=== PATIENT | female | born 1965 | race Caucasian/White ===

== ENCOUNTER 2019-12-25 23:40 | Inpatient (IN) | payer MEDICAID ==
[~2019-12-25] VITALS: Ht 160 cm; Wt 71.2 kg
[2019-12-26] MEDS ORDERED: CLINDAMYCIN PMX 600MG/50ML 50 ML IV ONE (00:30)
[2019-12-26] MEDS ORDERED: SODIUM CHLORIDE 0.9% 1,000ML IVBOLUS ONE ×2 (00:30→02:00)
[2019-12-26 00:38] LABS: MEAN CORPUSCULAR HEMOGLOBIN 24.8 pg (27.0-34.8); MEAN CORPUSCULAR HGB CONC 31.5 g/dL (32.4-35.8); MEAN PLATELET VOLUME 7.1 fL (7.4-10.4); PLATELET COUNT 528 x10^3/uL (130-400); RED BLOOD COUNT 3.88 x10^6/uL (3.82-5.3); RED CELL DISTRIBUTION WIDTH 15.9 % (9.6-15.2)
[2019-12-26] MEDS ORDERED: CLINDAMYCIN PMX 600MG/50ML 50 ML ONE ×2 (00:51→09:51)
[2019-12-26 01:00] LABS: MD YES
[2019-12-26 01:02] LABS: ALANINE AMINOTRANSFERASE 21 U/L (12-78); ALBUMIN 2.4 g/dL (3.4-5.0); CREATININE 1.01 mg/dL (0.55-1.02)
[2019-12-26 01:03] LABS: BAND#(MANUAL) 3.62 x10^3/uL; BANDS%(MANUAL) 11 % (0-7); LYMPH#(MANUAL) 0.99 x10^3/uL (1-3.4); LYMPHS% (MANUAL) 3 % (22-44); SEG#(MANUAL) 28.29 x10^3/uL (1.8-6.8); SEGS% (MANUAL) 86 % (42-75)
[2019-12-26 01:04] LABS: <PLATELET ESTIMATE> INCREASED; ALKALINE PHOSPHATASE 117 U/L (45-117); ANISOCYTOSIS 1+; BILIRUBIN,TOTAL 0.6 mg/dL (0.2-1.0); HYPOCHROMIA 1+; MICROCYTOSIS 1+; SMALL PLATELETS 1+; TOTAL PROTEIN 8.5 g/dL (6.4-8.2)
[2019-12-26 01:09] LABS: ANION GAP 6 mmol/L (5-15); CHLORIDE 105 mmol/L (98-107)
--- NOTE | 2019-12-26 01:55 | NUR ---
BIBA. C/o worsening cellulitis to BLLE, worse on R side. (+) CSM. (+) DP pulses noted bilaterally. Significant cellulitis, redness, swelling, and various stages of healing scabs noted. Denies fever/chills. Denies N/V/D. Denies chest pain/SOB. Pt states hx of IV drug use. Placed on continuous tele/O2 monitoring
[2019-12-26] MEDS ORDERED: CEFTRIAXONE PMX 1GM/50ML 50 ML IV ONE (02:00)
--- NOTE | 2019-12-26 02:00 | NUR ---
Delay in meds d/t inability to gain IV access by this RN and multiple additional RNs with US guidance. aware
[2019-12-26] MEDS ORDERED: SODIUM CHLORIDE 0.9% 1,000 ML IV SCH ×2 (02:30→12:30)
[2019-12-26] MEDS ORDERED: LABETALOL 5MG/ML, 20ML IVPush PRN (02:30)
[2019-12-26] MEDS ORDERED: ONDANSETRON 2MG/ML, 2ML IVPush PRN (02:30)
[2019-12-26] MEDS ORDERED: SODIUM CHLORIDE 0.9% 1,000 ML IV ONE (02:30)
[2019-12-26] MEDS ORDERED: CEFTRIAXONE PMX 1GM/50ML 50 ML ONE (02:39)
[2019-12-26 02:41] LABS: % IRON SATURATION 5 % (20-55); IRON LEVEL 13 mcg/dL (50-170); TOTAL IRON BINDING CAPACITY 250 mcg/dL (250-450)
[2019-12-26] MEDS ORDERED: HEPARIN 5,000 UNITS/ML, 1ML ONE ×2 (02:41→12:25)
[2019-12-26] MEDS: HEPARIN 5,000 UNITS/ML, 1ML SQ SCH ×3 (02:53→18:19)
--- NOTE | 2019-12-26 02:53 | NUR ---
BREAK RN: 2ND LITER OF FLUIDS AND ROCEPHIN STARTED. ALL VITALS STABLE. PT DENIES ANY COMPLAINTS AT THIS TIME
[2019-12-26] MEDS ORDERED: HYDROcodone/APAP 5/325 TABLET ONE (04:36)
[2019-12-26] MEDS ORDERED: ONDANSETRON 2MG/ML, 2ML ONE (04:37)
[2019-12-26] MEDS: HYDROcodone/APAP 5/325 TABLET PO PRN ×3 (04:40→20:09)
--- NOTE | 2019-12-26 05:50 | NUR ---
Pt refusing central line. States she wants to wait for PICC line placement. Aware we are unable to say when PICC line will be placed and IV access is critically important. Pt a&o x4, continues to refuse. aware
--- NOTE | 2019-12-26 05:54 | NUR ---
MD at bedside discussing PICC vs central line access
--- NOTE | 2019-12-26 06:53 | NUR ---
Unable to administer 0630 abx and IVF d/t no IV access. aware
--- NOTE | 2019-12-26 07:10 | NUR ---
REPORT RECEIVED FROM TRAE ORTEGA. THIS IS A 54 YO F BEING ADMITTED FOR BILAT LWR LEG CELLULITIS. D/T PTS SCAR TISSUE R/T HX OF IV DRUG USE, PIV ACCESS IS CURRENTLY UNAVAILABLE AFTER SEVERAL ATTEMPTS BY POSTDOCTORAL RESEARCH ASSOCIATE. PER TRAE ORTEGA, PT WAS TO GET A CENTRAL LINE FROM ED MD AFTER BECOMING HYPOTENSIVE, HOWEVER PT REFUSED AND PRESSURES STABILIZED. PER TRAE ORTEGA PT IS TO GET PICC LINE TODAY. PER TRAE ORTEGA PT RECEIVED 2L NS AND ABX W/ PREVIOUS LINE THAT IS NO LONGER PATENT, PER SEPSIS PROTOCOL. PT RESTING ON Floor64 W/ CALL LIGHT IN REACH AND SIDE RAILS UPX2. RESP EVEN AND UNLABORED, JOSE LUIS.
--- NOTE | 2019-12-26 07:38 | NUR ---
TELEPHONE CALL TO PANKAJ SIU REGARDING LACK OF IV ACCESS. STATES HE WILL PUT IN ORDER FOR STAT PICC LINE.
--- NOTE | 2019-12-26 08:18 | NUR ---
BREAKFAST TRAY DELIVERED.
--- NOTE | 2019-12-26 08:26 | NUR ---
PT AMBULATED TO THE BR W/ A STEADY GAIT.
--- NOTE | 2019-12-26 08:37 | NUR ---
PT RETURNED TO ROOM W/O INCIDENT. RESP EVEN AND UNLABORED, NADN. PT DENIES ANY HOME MEDS OR PAST MEDICAL HX.
[2019-12-26] MEDS: NICOTINE 14MG/24 HR PATCH.TD24 TD SCH (09:00)
--- NOTE | 2019-12-26 09:09 | NUR ---
IR IN ROOM TO TAKE PT FOR PICC LINE AT THIS TIME.
--- NOTE | 2019-12-26 09:10 | NUR ---
REPORT GIVEN TO ELIZABETH ORTEGA. CARLOS, JOSE LUIS.
--- NOTE | 2019-12-26 09:11 | NUR ---
report received from JORDAN Leary, pt in IR at this time. this RN assuming care of pt upon return.
[2019-12-26] MEDS: CLINDAMYCIN PMX 600MG/50ML 50 ML IV SCH ×2 (09:54→18:40)
--- NOTE | 2019-12-26 10:20 | NUR ---
pt back from IR, PICC line placed with rad confirmation of placement. picc flushes well with good blood return. cleocin infusing via IV pump. pt [facility] hospital bed. pt states she has pain to right lower leg, pt drowsy and requests lights dimmed to sleep, stating she did not sleep last night. pt declining nicotine patch, pt to be medicated for pain once awake and alert. sinus tach rate 90s with no ectopy. call light in reach, all monitors in place. awaiting Elasticsearch placement at this time.
[2019-12-26] MEDS: LACTOBACILLUS CHEW TABLET PO SCH ×3 (11:07→20:03)
--- NOTE | 2019-12-26 11:10 | NUR ---
PT HYPOTENSIVE AT 88/56, MAP 67. PT DROWSY, AWAKENS TO VOICE. A&O WHEN AWAKENED, RESPS EVEN AND UNLABORED. NSR RATE 80-90 ON TELETYPEWRITER INSTALLER WITH NO ECTOPY. HOSPITALIST BRAYAN CALLED TO NOTIFY OF HYPOTENSION. SALBADOR SCHMIDT NOTIFIED THAT PT DID NOT RECEIVE FULL WEIGHT BASED NS BOLUS. TELEPHONE ORDER RECEIVED FOR 500ML NS BOLUS FOLLOWED BY NS MAINTENANCE INFUSION OF 100ML/HR.
[2019-12-26] MEDS ORDERED: SODIUM CHLORIDE 0.9%, 500ML IVBOLUS ONE (12:30)
--- NOTE | 2019-12-26 13:00 | NUR ---
NS BOLUS INFUSING, PT IS AWAKE, ALERT, ORIENTED X 4. PT EATING LUNCH AT THIS TIME. PT STATES PAIN TOLERABLE AT 4/10, DECLINES PAIN MEDICATION. WOUND CARE PERFORMED, DRESSINGS PLACED TO LESIONS X 2 TO RIGHT LOWER LEG. WOUND CULTURE COLLECTED AND WALKED TO LAB. PT REMAINS ON ALL MONITORS, NADN.
--- NOTE | 2019-12-26 14:01 | NUR ---
NS BOLUS COMPLETED AT 1324, SERIAL BP MEASUREMENTS IN PROGRESS PER PROTOCOL. PT IS A&O, RESPS EVEN AND UNLABORED, NADN. PT ATE WHOLE LUNCH TRAY, TOLERATED WELL. ROOM ASSIGNMENT RECEIVED. RECEIVING RN CALLED FOR REPORT, UNABLE TO TAKE REPORT AT THIS TIME.
--- NOTE | 2019-12-26 14:36 | NUR ---
THIS RN TRANSPORTED PATIENT WITH TECH ASSIST. THIS RN SPOKE WITH SALBADOR SCHMIDT AND NOTIFIED THAT PT HAS CRACKLES AUSCULTATED TO LUNG BASES PRIOR TO NS BOLUS GIVEN TODAY, PA NOTIFIED PT WAS MILDLY HYPOXIC THIS AM ON ROOM AIR 88-89%. PA ORDERED XRAY. PA ALSO NOTIFIED VENOFER IS ORDERED TO BEGIN TOMORROW, PA STATED THAT THIS MAY BE STARTED TODAY, PHARMACY CALLED TO NOTIFY. RECEIVING RN AWARE.
[2019-12-26 14:44] VITALS: BP 92/63
[2019-12-26] MEDS: IRON SUCROSE COMPLEX 100MG/5ML IV SCH (18:18)
[2019-12-26] MEDS: SODIUM CHLORIDE 0.9% 1,000 ML IV SCH (18:20)
[2019-12-26 20:09] VITALS: BP 106/65
[2019-12-27] MEDS: CLINDAMYCIN PMX 600MG/50ML 50 ML IV SCH ×4 (00:55→18:26)
[2019-12-27 01:28] VITALS: BP 100/65
[2019-12-27] MEDS: HEPARIN 5,000 UNITS/ML, 1ML SQ SCH ×3 (02:36→18:26)
[2019-12-27] MEDS: CEFTRIAXONE PMX 1GM/50ML 50 ML IV SCH (02:37)
[2019-12-27 05:34] LABS: BASOPHILS % (AUTO) 0 % (0-1); EOSINOPHILS % (AUTO) 3 % (1-7); LYMPHOCYTES % (AUTO) 8 % (22-44); MEAN CORPUSCULAR HEMOGLOBIN 25.7 pg (27.0-34.8); MEAN CORPUSCULAR HGB CONC 32.4 g/dL (32.4-35.8); MEAN PLATELET VOLUME 7.4 fL (7.4-10.4); MONOCYTES % (AUTO) 5 % (2-9); NEUTROPHILS % (AUTO) 84 % (42-75); PLATELET COUNT 425 x10^3/uL (130-400); RED BLOOD COUNT 3.28 x10^6/uL (3.82-5.3); RED CELL DISTRIBUTION WIDTH 16.1 % (9.6-15.2)
[2019-12-27 05:39] LABS: ANION GAP 5 mmol/L (5-15); CALCIUM 7.7 mg/dL (8.5-10.1); CHLORIDE 109 mmol/L (98-107); CREATININE 0.69 mg/dL (0.55-1.02)
[2019-12-27 05:46] LABS: MD NO
[2019-12-27] MEDS: SODIUM CHLORIDE 0.9% 1,000 ML IV SCH ×2 (06:00→20:27)
[2019-12-27 07:10] VITALS: BP 102/70
[2019-12-27] MEDS: LACTOBACILLUS CHEW TABLET PO SCH ×3 (08:40→20:26)
[2019-12-27] MEDS: NICOTINE 14MG/24 HR PATCH.TD24 TD SCH (08:40)
[2019-12-27] MEDS ORDERED: IRON SUCROSE COMPLEX 100MG/5ML IV SCH (09:00)
[2019-12-27] MEDS: HYDROcodone/APAP 5/325 TABLET PO PRN ×2 (11:48→17:38)
[2019-12-27 12:02] VITALS: BP 100/68
[2019-12-27] MEDS: IRON SUCROSE COMPLEX 100MG/5ML IV SCH (15:40)
[2019-12-27 19:53] VITALS: BP 106/75
[2019-12-27] MEDS: MUPIROCIN OINT 2%, 1 GM APPL. TP SCH (20:27)
[2019-12-28] MEDS: CLINDAMYCIN PMX 600MG/50ML 50 ML IV SCH ×4 (00:28→20:35)
[2019-12-28 01:22] VITALS: BP 101/67
[2019-12-28] MEDS: HEPARIN 5,000 UNITS/ML, 1ML SQ SCH ×3 (02:43→18:30)
[2019-12-28] MEDS: CEFTRIAXONE PMX 1GM/50ML 50 ML IV SCH (02:43)
[2019-12-28] MEDS: HYDROcodone/APAP 5/325 TABLET PO PRN ×3 (02:44→20:13)
[2019-12-28 07:28] VITALS: BP 112/75
[2019-12-28 08:13] LABS: ANION GAP 4 mmol/L (5-15); CALCIUM 8.3 mg/dL (8.5-10.1); CHLORIDE 108 mmol/L (98-107); CREATININE 0.75 mg/dL (0.55-1.02)
[2019-12-28 08:15] LABS: BASOPHILS % (AUTO) 1 % (0-1); EOSINOPHILS % (AUTO) 4 % (1-7); LYMPHOCYTES % (AUTO) 14 % (22-44); MEAN CORPUSCULAR HEMOGLOBIN 25.3 pg (27.0-34.8); MEAN PLATELET VOLUME 7.3 fL (7.4-10.4); MONOCYTES % (AUTO) 8 % (2-9); NEUTROPHILS % (AUTO) 73 % (42-75); PLATELET COUNT 475 x10^3/uL (130-400); RED BLOOD COUNT 3.39 x10^6/uL (3.82-5.3); RED CELL DISTRIBUTION WIDTH 15.9 % (9.6-15.2)
[2019-12-28 08:18] LABS: MD NO
[2019-12-28] MEDS: NICOTINE 14MG/24 HR PATCH.TD24 TD SCH (08:46)
[2019-12-28] MEDS: LACTOBACILLUS CHEW TABLET PO SCH ×3 (08:46→20:13)
[2019-12-28] MEDS: SODIUM CHLORIDE 0.9% 1,000 ML IV SCH ×2 (08:47→20:35)
[2019-12-28] MEDS: MUPIROCIN OINT 2%, 1 GM APPL. TP SCH (08:48)
[2019-12-28 14:30] VITALS: BP 131/82
[2019-12-28] MEDS: IRON SUCROSE COMPLEX 100MG/5ML IV SCH (16:47)
[2019-12-28] MEDS ORDERED: POLYETHYLENE GLYCOL 17 GM PACKET PO PRN (18:00)
[2019-12-28] MEDS ORDERED: DOCUSATE 100 MG CAPSULE PO PRN (18:00)
[2019-12-28 19:12] VITALS: BP 115/76
[2019-12-28 23:59] VITALS: BP 117/74
[2019-12-29 00:28] VITALS: BP 117/74
[2019-12-29] MEDS: CLINDAMYCIN PMX 600MG/50ML 50 ML IV SCH ×2 (02:50→10:31)
[2019-12-29] MEDS: CEFTRIAXONE PMX 1GM/50ML 50 ML IV SCH (02:50)
[2019-12-29] MEDS: HYDROcodone/APAP 5/325 TABLET PO PRN ×2 (03:10→10:30)
[2019-12-29] MEDS: HEPARIN 5,000 UNITS/ML, 1ML SQ SCH ×2 (03:10→10:31)
[2019-12-29] MEDS: MUPIROCIN OINT 2%, 1 GM APPL. TP SCH ×2 (06:28→10:33)
[2019-12-29 07:15] LABS: BASOPHILS % (AUTO) 1 % (0-1); EOSINOPHILS % (AUTO) 4 % (1-7); LYMPHOCYTES % (AUTO) 17 % (22-44); MEAN CORPUSCULAR HEMOGLOBIN 25.4 pg (27.0-34.8); MEAN CORPUSCULAR HGB CONC 31.9 g/dL (32.4-35.8); MEAN PLATELET VOLUME 7.4 fL (7.4-10.4); MONOCYTES % (AUTO) 7 % (2-9); NEUTROPHILS % (AUTO) 71 % (42-75); PLATELET COUNT 474 x10^3/uL (130-400); RED BLOOD COUNT 3.39 x10^6/uL (3.82-5.3); RED CELL DISTRIBUTION WIDTH 15.8 % (9.6-15.2)
[2019-12-29 07:25] LABS: MD NO
[2019-12-29 07:26] LABS: ANION GAP 5 mmol/L (5-15); CALCIUM 8.6 mg/dL (8.5-10.1); CHLORIDE 106 mmol/L (98-107); CREATININE 0.73 mg/dL (0.55-1.02)
[2019-12-29 07:53] VITALS: BP 132/75
[2019-12-29] MEDS ORDERED: SENNA/DOCUSATE TABLET PO SCH (09:00)
[2019-12-29] MEDS: LACTOBACILLUS CHEW TABLET PO SCH (10:30)
[2019-12-29] MEDS: NICOTINE 14MG/24 HR PATCH.TD24 TD SCH (10:31)
[2019-12-29] MEDS: SODIUM CHLORIDE 0.9% 1,000 ML IV SCH (10:32)
[2019-12-29] MEDS ORDERED: LORazepam 2 MG/ML, 1ML IVPush PRN (11:30)
== END 2019-12-29 11:36 | disposition left against medical advice (07) | DRG 872 ==
LOC: ED 12-26 01:46 → EDIP 12-26 02:10 → 4WST 12-26 14:40
PROVIDERS: ADMIT Family Medicine; ATTEND Internal Medicine
PROC: 02HV33Z Insertion of Infusion Device into Superior Vena Cava, Percutaneous Approach (ICD-10-PCS; principal; 2019-12-26)
PROC: B5181ZA Fluoroscopy of Superior Vena Cava using Low Osmolar Contrast, Guidance (ICD-10-PCS; 2019-12-26)
PROC: B548ZZA Ultrasonography of Superior Vena Cava, Guidance (ICD-10-PCS; 2019-12-26)
DX: A41.9 Sepsis, unspecified organism (principal); L03.115 Cellulitis of right lower limb; F17.200 Nicotine dependence, unspecified, uncomplicated; F41.9 Anxiety disorder, unspecified; F19.10 Other psychoactive substance abuse, uncomplicated; D50.9 Iron deficiency anemia, unspecified; Z86.14 Personal history of Methicillin resistant Staphylococcus aureus infection; Z90.49 Acquired absence of other specified parts of digestive tract; Z88.1 Allergy status to other antibiotic agents; Z71.6 Tobacco abuse counseling; Z91.14 Patient's other noncompliance with medication regimen
CPT/HCPCS: 36415; 36573; 71045; 80048; 80053; 83540; 83550; 83605; 84145; 85025; 87040; 87070; 87077; 87186; 87205; 90471; 93970; 99291; G0378; J0696; J1644; J1756; J2405; C1751; J7030; J7040

== ENCOUNTER 2020-07-05 23:10 | Emergency (ER) | payer MEDICAID ==
[~2020-07-05] VITALS: Ht 160 cm; Wt 77.8 kg
[2020-07-05 23:12] VITALS: BP 138/83
[2020-07-05] MEDS ORDERED: LIDOCAINE-MPF 1%, 5ML INFIL ONE (23:30)
--- NOTE | 2020-07-06 00:07 | NUR ---
PT TO ROOM FROM LOB. PT CHANGED INTO GOWN AND THEN WANDERING HALLWAYS STATING "IM LOOKING FOR MY BF". BF IN LOBBY, WALKED WITH PT TO ROOM.
[2020-07-06] MEDS ORDERED: LIDOCAINE-MPF 1%, 5ML ONE (00:10)
--- NOTE | 2020-07-06 00:18 | NUR ---
CC OF LOWER RIGHT SKIN INFECTION AND RIGHT FOREARM ABSCESS AND PAIN. HX IV DRUGS
[2020-07-06 00:20] LABS: BASOPHILS % (AUTO) 1 % (0-1); EOSINOPHILS % (AUTO) 1 % (1-7); LYMPHOCYTES % (AUTO) 10 % (22-44); MEAN CORPUSCULAR HEMOGLOBIN 24.9 pg (27.0-34.8); MEAN CORPUSCULAR HGB CONC 32.8 g/dL (32.4-35.8); MEAN PLATELET VOLUME 7.4 fL (7.4-10.4); MONOCYTES % (AUTO) 7 % (2-9); NEUTROPHILS % (AUTO) 82 % (42-75); PLATELET COUNT 465 x10^3/uL (130-400); RED BLOOD COUNT 4.75 x10^6/uL (3.82-5.3); RED CELL DISTRIBUTION WIDTH 18.4 % (9.6-15.2)
[2020-07-06 00:24] LABS: MD NO
[2020-07-06 00:25] LABS: ALANINE AMINOTRANSFERASE 34 U/L (12-78); ALBUMIN 3.1 g/dL (3.4-5.0); ANION GAP 6 mmol/L (5-15); CALCIUM 8.5 mg/dL (8.5-10.1); CHLORIDE 104 mmol/L (98-107); CREATININE 0.84 mg/dL (0.55-1.02)
[2020-07-06 00:27] LABS: ALKALINE PHOSPHATASE 152 U/L (45-117); BILIRUBIN,TOTAL 0.5 mg/dL (0.2-1.0); TOTAL PROTEIN 9.5 g/dL (6.4-8.2)
[2020-07-06] MEDS ORDERED: CLINDAMYCIN 300 MG CAPSULE ONE (01:23)
[2020-07-06] MEDS ORDERED: CLINDAMYCIN 300 MG CAPSULE PO ONE (01:30)
== END 2020-07-06 02:14 | disposition home or self-care (01) ==
LOC: ED 07-06 02:06
DX: L03.115 Cellulitis of right lower limb (principal); L02.413 Cutaneous abscess of right upper limb; F17.210 Nicotine dependence, cigarettes, uncomplicated; Z90.49 Acquired absence of other specified parts of digestive tract; Z88.1 Allergy status to other antibiotic agents
CPT/HCPCS: 10060; 36415; 80053; 85025; 99284; 99406